=== PATIENT | female | born 1960 | race Caucasian/White ===

== ENCOUNTER → 2016-09-02 | Day surgery (SDC) | payer OTHER ==
[~2016-09-02] VITALS: Ht 167.6 cm; Wt 67.1 kg
--- NOTE | 2016-09-02 12:22 | Operative Report ---
Operative/Inv Procedure Report Surgery Date: 09/02/16 Name of Procedure: Laparoscopic bilateral salpingo-oophorectomy and pelvic washings Pre-Operative Diagnosis: Personal history of stage 0 breast cancer, family history of ovarian cancer Post-Operative Diagnosis: Same Estimated Blood Loss: scant Surgeon/Tool Rental Technician: HERNANDO DAVIDSON DO Asst. Anesthesia: general endotracheal tube IV Fluids: 1300 mL Urine Output: 350 mL Drains: None Specimens: Pelvic washings, bilateral ovaries and bilateral fallopian tubes Complications: None Condition: Good Operative Indication: This patient is a 55-year-old postmenopausal female with a personal history of stage 0 breast cancer and strong family history of ovarian cancer. She is BRCA negative however she was seen by an oncologist who felt that she was at higher risk for ovarian cancer compared to the general population. Bilateral salpingo- oopherectomy was advised. The patient was counseled on the risks, benefits, alternatives of her procedure including the risks of bleeding and possible blood transfusion, infection and need for wound care or antibiotics, possible injury to the organs, possible need for laparotomy, possible diagnosis of cancer, possible need for additional surgeries, possible development of cancer regardless of BSO. The patient has stated verbal understanding of all the above and desires to proceed. Operative/Procedure Note Note: The patient was taken to the operating room where anesthesia was obtained without difficulty. She was placed in the dorsal lithotomy position and examined under anesthesia. She was then prepared and draped in usual sterile fashion. A Graves speculum was placed inside the patient's vagina and the anterior cervix was grasped with a single-tooth tenaculum. An acorn manipulator was then inserted into her cervix. Speculum was removed and a Ortiz catheter was then inserted. Attention was then turned to the patient's abdomen where a 10 mm infraumbilical skin incision was made with a scalpel. Incision was carried down to the fascia with the scalpel. The fascia was incised. A Ashford trocar was then inserted and intra-abdominal placement confirmed with camera. Pneumoperitoneum was then obtained with 3 L of CO2 gas. A survey the patient's abdomen and pelvis was performed. Her bilateral ovaries and bilateral fallopian tubes appeared to be relatively free . there were small adhesions to the patient 's left ovary and fallopian tube. A 10 mm left lower quadrant incision was made with a scalpel and a 10 mm trocar inserted under direct visualization. A 5 mm incision was made in the right lower quadrant and a 5 mm trocar was inserted under direct visualization. Peritoneal washings were then obtained. Graspers were used to grab the left fallopian tube and fimbria. The left infundibulopelvic ligament was then identified and cauterized and cut with the LigaSure device. Small bites were taken with the LigaSure in order to excise the full length of the left fallopian tube and left ovary. Small adhesion was noted from the left ovary to the posterior cul-de-sac which was taken down with the LigaSure device. Additionally care was taken with adhesions to the left pelvic sidewall. HemoStasis was noted. Attention was then turned to the patient's right adnexa which was grasped with the grasper. In a similar fashion the right infundibulopelvic ligament was identified and cauterized and cut with the LigaSure device. Care was taken to excise the entire ovary and entire fallopian tube. A small amount of bleeding was noted in the area of the infundibulopelvic ligament. Hemostasis was achieved with the LigaSure device. An Endo Catch bag was then inserted and specimens were removed without difficulty. Irrigation and suction was then performed and hemostasis was assured. Instruments were then removed from the patient's abdomen and pelvis. Hemostasis was again noted after pneumoperitoneum was reduced. The fascia of the Left lower quadrant and umbilical incisions were reapproximated with 0 Vicryl. All skin incisions were closed with 4-0 Biosyn in a subcutaneous fashion. A total of 15 mL of half percent Marcaine without epi were placed subdermally below the incisions. Bandages were placed. Wartrace manipulator and tenaculum were removed the patient's vagina. Hemostasis of tenaculum sites was noted. The patient was awoken from anesthesia and was taken to the right recovery area in stable condition. Findings were relayed to the patient's in the patient.
== END ==
LOC: STS 02:03
DX: Z80.41 Family history of malignant neoplasm of ovary (principal); Z85.3 Personal history of malignant neoplasm of breast; Z80.3 Family history of malignant neoplasm of breast
CPT/HCPCS: 36415; 88305; J1885; J2250; J2405